=== PATIENT | female | born 1960 | race Caucasian/White ===

== ENCOUNTER 2022-09-16 08:03 | Outpatient (CLI) | payer BC | END 2022-09-16 08:04 | disposition home or self-care (01) | LOC: CSHRAD 08:03 | PROVIDERS: ATTEND Urology | DX: N20.0 Calculus of kidney (principal); Z96.0 Presence of urogenital implants; R93.5 Abnormal findings on diagnostic imaging of other abdominal regions, including retroperitoneum | CPT/HCPCS: 74018 ==